=== PATIENT | female | born 1950 | race Caucasian/White ===

== ENCOUNTER 2021-01-17 14:09 | Emergency (ER) | payer MEDICARE ==
[~2021-01-17] VITALS: Ht 170.2 cm; Wt 90.0 kg
--- NOTE | 2021-01-17 14:36 | NUR ---
PT WC'D TO ROOM 28 W/ C/O L HIP PAIN. PT UNABLE TO BEND L KNEE BY HERSELF. PT STATES SHE WAS IN HER YARD AND SHE SLIPPED ON A BOARD AND HER LEG OVERSTRETCHED FORWARD. PT STATES WHEN SHE TRIES TO PERFORM ROM HER LEG GETS TIGHT AND SPASMS. PT RESTING ON GURNEY. NADN. FOSTER. JANAY HERNANDEZ AT BEDSIDE FOR EVAL.
--- NOTE | 2021-01-17 14:52 | NUR ---
REPORT GIVEN TO BRAYDON ARIAS.
--- NOTE | 2021-01-17 14:54 | NUR ---
Report from BRAYDON Stokes. Assumed care.
[2021-01-17] MEDS ORDERED: METHOCARBAMOL 750 MG TABLET PO ONE (15:00)
[2021-01-17] MEDS ORDERED: MORPHINE SULFATE 4 MG/ML, 1ML IVPush PRN (15:00)
[2021-01-17] MEDS ORDERED: SODIUM CHLORIDE FLUSH 10ML SYR IVF ONE (15:00)
[2021-01-17] MEDS ORDERED: ONDANSETRON 2MG/ML, 2ML IVPush ONE (15:00)
[2021-01-17] MEDS ORDERED: PLEASE ENTER ALLERGIES MC SCH (15:00)
[2021-01-17] MEDS ORDERED: ONDANSETRON 2MG/ML, 2ML ONE (15:11)
[2021-01-17] MEDS ORDERED: MORPHINE SULFATE 4 MG/ML, 1ML ONE (15:11)
[2021-01-17] MEDS ORDERED: METHOCARBAMOL 750 MG TABLET ONE (15:11)
--- NOTE | 2021-01-17 15:35 | NUR ---
Verified allergies and ordered medications with pharmacy.
--- NOTE | 2021-01-17 15:46 | NUR ---
IV started, medicated per eMAR.
[2021-01-17 16:33] VITALS: BP 124/61
== END 2021-01-17 17:03 | disposition home or self-care (01) ==
LOC: ED 16:55
DX: S76.312A Strain of muscle, fascia and tendon of the posterior muscle group at thigh level, left thigh, initial encounter (principal); Z88.2 Allergy status to sulfonamides; W01.0XXA Fall on same level from slipping, tripping and stumbling without subsequent striking against object, initial encounter; Y93.89 Activity, other specified; Y92.009 Unspecified place in unspecified non-institutional (private) residence as the place of occurrence of the external cause; Y99.8 Other external cause status
CPT/HCPCS: 72190; 73552; 96374; 96375; 99284; J2270; J2405

== ENCOUNTER → 2021-02-17 | Outpatient (CLI) | payer MEDICARE ==
[~2021-02-17] MED LIST: OMNIPAQUE 350 MG/ML, 100ML BOTTLE ONE
== END | disposition home or self-care (01) ==
LOC: CFH 13:03
PROVIDERS: ATTEND Nurse Practitioner
DX: K57.30 Diverticulosis of large intestine without perforation or abscess without bleeding (principal); Z87.19 Personal history of other diseases of the digestive system
CPT/HCPCS: 74177; Q9967